=== PATIENT | female | born 1980 | race Caucasian/White ===

== ENCOUNTER 2017-09-21 18:24 | Emergency (ER) | payer OTHER ==
--- NOTE | 2017-09-21 18:55 | PDOC ---
Rapid Medical Evaluation Time Seen by Provider: 09/21/17 18:52 Medical Evaluation: Allergies Allergy/AdvReac Type Severity Reaction Status Date / Time No Known Allergies Allergy Verified 04/28/16 20:38 09/21/17 18:52 Healthy 37 year old female with neck pain and "ball" on the right side of her neck since Thursday. No fevers/chills. Complaining of fatigue. -Alert, oriented, no distress. -Very tender, firm, non-mobile mass right side of neck. -To FT for further evaluation.
[2017-09-21 18:57] VITALS: BP 114/77; PULSE 89; TEMP 98.5; BMI 22.3
--- NOTE | 2017-09-21 19:51 | PDOC ---
History of Present Illness - General Chief Complaint: Head/Neck problem Stated Complaint: NECK PAIN/BUMP Time Seen by Provider: 09/21/17 18:52 - History of Present Illness Initial Comments: 37-year-old female with malaise muscle aches painful lump in her neck and sore throat for the last 3 days. No medical problems no significant past medical history. 09/21/17 19:49 Past History - Past Medical History Allergies/Adverse Reactions: Allergies Allergy/AdvReac Type Severity Reaction Status Date / Time No Known Allergies Allergy Verified 09/21/17 18:53 Home Medications: Ambulatory Orders Amoxicillin/Potassium Clav [Augmentin 875-125 Tablet] 1 each PO BID #20 tablet 09/21/17 COPD: No Other medical history: DENIES. - Suicide/Smoking/Psychosocial Hx Smoking History: Never smoked Review of Systems - Review of Systems Comments:: GENERAL/CONSTITUTIONAL: [No fever or chills. No weakness. No weight change. Malaise HEAD, EYES, EARS, NOSE AND THROAT: [No change in vision. No ear pain or discharge. + sore throat.] CARDIOVASCULAR: [No chest pain or shortness of breath.] RESPIRATORY: [No cough, wheezing, or hemoptysis.] GASTROINTESTINAL: [No nausea, vomiting, diarrhea or constipation. No rectal bleeding.] GENITOURINARY: [No dysuria, frequency, or change in urination.] MUSCULOSKELETAL: [No joint or muscle swelling or pain. Positive neck pain no lower back pain.] SKIN AND BREASTS: [No rash or easy bruising.] NEUROLOGIC: [No headache, vertigo, loss of consciousness, or loss of sensation.] PSYCHIATRIC: [No depression or anxiety.] ENDOCRINE: [No increased thirst. No abnormal weight change.] HEMATOLOGIC/LYMPHATIC: [No anemia, easy bleeding, or history of blood clots.] ALLERGIC/IMMUNOLOGIC: [No hives or skin allergy. No latex allergy.] 09/21/17 19:50 *Physical Exam - Vital Signs Last Vital Signs Temp Pulse Resp BP Pulse Ox 98.5 F 89 19 114/77 97 09/21/17 18:53 09/21/17 18:53 09/21/17 18:53 09/21/17 18:53 09/21/17 18:53 - Physical Exam Comments: GENERAL: [The patient is awake, alert, and fully oriented, in no acute distress. ] HEAD: [Normal with no signs of trauma.] EYES: [Pupils equal, round and reactive to light, extraocular movements intact, sclera anicteric, conjunctiva clear.] ENT: [Ears normal, nares patent, oropharynx injected without exudates. Moist mucous membranes.] NECK: [Normal range of motion, supple with right sided painful lymphadenopathy, JVD, or masses.] LUNGS: [Breath sounds equal, clear to auscultation bilaterally. No wheezes, and no crackles.] HEART: [Regular rate and rhythm, normal S1 and S2 without murmur, rub or gallop. ] ABDOMEN: [Soft, nontender, normoactive bowel sounds. No guarding, no rebound. No masses.] EXTREMITIES: [Normal range of motion, no edema. No clubbing or cyanosis. No cords, erythema, or tenderness.] NEUROLOGICAL: [Cranial nerves II through XII grossly intact. Normal speech, normal gait.] PSYCH: [Normal mood, normal affect.] SKIN: [Warm, Dry, normal turgor, no rashes or lesions noted.] 09/21/17 19:51 Moderate Sedation - Procedure Monitoring Vital Signs: Vital Signs Temp Pulse Resp BP Pulse Ox 98.5 F 89 19 114/77 97 09/21/17 18:53 09/21/17 18:53 09/21/17 18:53 09/21/17 18:53 09/21/17 18:53 Medical Decision Making - Medical Decision Making Strep test is negative treat her for lymphangitis with Augmentin follow-up PCP in 1-2 days return to the emergency room if symptoms worsen or go unresolved prior to follow-up. 09/21/17 21:03 *DC/Admit/Observation/Transfer Diagnosis at time of Disposition: Lymphangitis - Discharge Dispostion Disposition: HOME Condition at time of disposition: Stable Decision to Admit order: No - Referrals Referrals: Penelope Burrows [Primary Care Provider] - - Patient Instructions Printed Discharge Instructions: Lymphangitis, DI for Lymphangitis-Adult Additional Instructions: Take all the antibiotics as prescribed. Return to the emergency room if your symptoms worsen or go unresolved prior to follow-up. You may take Advil and Tylenol for your pain and discomfort. - Post Discharge Activity
== END 2017-09-21 21:09 | disposition home or self-care (01) ==
LOC: JERFT 18:24
DX: I89.1 Lymphangitis (principal)
CPT/HCPCS: 87070; 87430; 99281-25